=== PATIENT | male | born 1985 | race Caucasian/White ===

== ENCOUNTER 2017-03-04 02:42 | Emergency (ER) | payer MEDICARE ==
[2017-03-04 05:40] LABS: HEMOGLOBIN 12.3 gm/dl (14.0-17.5); RED BLOOD COUNT 4.12 M/UL (4.20-5.50); WHITE BLOOD COUNT 9.2 K/UL (4.5-11.0)
[2017-03-04 06:04] LABS: BUN/CREATININE RATIO 28 (0-10)
== END 2017-03-04 07:50 ==
LOC: ER1 02:42
PROVIDERS: Emergency Medicine
DX: S51.012A Laceration without foreign body of left elbow, initial encounter (principal); N39.0 Urinary tract infection, site not specified; F17.210 Nicotine dependence, cigarettes, uncomplicated; Z23 Encounter for immunization; X99.8XXA Assault by other sharp object, initial encounter; Y92.009 Unspecified place in unspecified non-institutional (private) residence as the place of occurrence of the external cause
CPT/HCPCS: 12001; 36415; 70450; 73080; 80053; 80307; 81001; 85025; 87086; 90471; 90715; 96361; 96374; 99284; J2310; J2405

== ENCOUNTER 2020-11-18 14:14 | Emergency (ER) | payer OTHER ==
[~2020-11-18 14:14] MED LIST: BACTRIM DS TAB1 EACH PO; BUPRENORPHIN-N1 EACH SL; FLOVENT 110.088 GM/I INH; IBU800 MG PO; KEFLEX CAP 500500 MG PO; KEFLEX500 MG PO; LODINE CAP 300300 MG PO; MORGIDOX100 MG PO; NASONEX17 GM; ZITHROMAX TRI-500 MG PO
[2020-11-18] MEDS ORDERED: ELIMITE 5% CREA60 GM TOP (15:42)
== END 2020-11-18 15:45 | disposition home or self-care (01) ==
LOC: ER1 14:14
DX: B86 Scabies (principal); F17.200 Nicotine dependence, unspecified, uncomplicated
CPT/HCPCS: 99282

== ENCOUNTER 2020-12-15 19:28 | Emergency (ER) | payer OTHER ==
[~2020-12-15 19:28] MED LIST changes: +ELIMITE 5% CREA60 GM TOP
[2020-12-15] MEDS ORDERED: ELIMITE 5% CREA60 GM TOP (20:22)
[2020-12-15] MEDS ORDERED: DOXYCYCLINE MO100 MG PO (20:22)
[2020-12-15] MEDS ORDERED: VISTARIL25 MG PO (20:22)
== END 2020-12-15 20:31 | disposition home or self-care (01) ==
LOC: ER1 19:28
DX: L29.9 Pruritus, unspecified (principal); L73.9 Follicular disorder, unspecified; B86 Scabies; F17.210 Nicotine dependence, cigarettes, uncomplicated
CPT/HCPCS: 99282

== ENCOUNTER 2020-12-19 13:48 | Emergency (ER) | payer OTHER ==
[~2020-12-19 13:48] MED LIST changes: +DOXYCYCLINE MO100 MG PO; +VISTARIL25 MG PO
== END 2020-12-19 14:45 | disposition home or self-care (01) ==
LOC: ER1 13:48
DX: F22 Delusional disorders (principal)
CPT/HCPCS: 99282

== ENCOUNTER 2021-02-25 12:28 | Emergency (ER) | payer OTHER ==
[2021-03-01 08:10] LABS: CHLAMYDIA TRACHOMATIS, NAA Negative (Negative); NEISSERIA GONORRHOEAE, NAA Positive (Negative)
== END 2021-02-25 14:05 | disposition home or self-care (01) ==
LOC: ER1 12:28
PROVIDERS: Physician Assistant
DX: R36.9 Urethral discharge, unspecified (principal); R30.0 Dysuria; Z20.2 Contact with and (suspected) exposure to infections with a predominantly sexual mode of transmission; F17.210 Nicotine dependence, cigarettes, uncomplicated
CPT/HCPCS: 81001; 87086; 96372; 99283; J0696

== ENCOUNTER 2021-03-21 14:27 | Emergency (ER) | payer OTHER ==
[2021-03-21] MEDS ORDERED: CLEOCIN HCL300 MG PO (14:50)
[2021-03-21] MEDS ORDERED: DOXYCYCLINE HY100 MG PO (14:58)
== END 2021-03-21 15:00 | disposition home or self-care (01) ==
LOC: ER1 14:27
DX: R21 Rash and other nonspecific skin eruption (principal); F17.200 Nicotine dependence, unspecified, uncomplicated
CPT/HCPCS: 99282

== ENCOUNTER 2021-11-30 15:28 | Emergency (ER) | payer MEDICAID ==
[~2021-11-30 15:28] MED LIST changes: +CLEOCIN HCL300 MG PO; +DOXYCYCLINE HY100 MG PO
[2021-11-30] MEDS ORDERED: PERCOCET 5-3251 EACH PO (17:50)
== END 2021-11-30 18:20 | disposition home or self-care (01) ==
LOC: ER1 15:28
DX: S43.014A Anterior dislocation of right humerus, initial encounter (principal); W19.XXXA Unspecified fall, initial encounter; Y92.009 Unspecified place in unspecified non-institutional (private) residence as the place of occurrence of the external cause
CPT/HCPCS: 23650; 73030; 99152; 99283; J1170; J2250; J2405; J2704

== ENCOUNTER 2021-12-03 12:03 | Emergency (ER) | payer OTHER ==
[~2021-12-03 12:03] MED LIST changes: +PERCOCET 5-3251 EACH PO
[2021-12-03] MEDS ORDERED: NAPROXEN500 MG PO (15:56)
== END 2021-12-03 16:17 | disposition home or self-care (01) ==
LOC: ER1 12:03
DX: S43.034A Inferior dislocation of right humerus, initial encounter (principal); S43.014A Anterior dislocation of right humerus, initial encounter; F17.210 Nicotine dependence, cigarettes, uncomplicated; X58.XXXA Exposure to other specified factors, initial encounter
CPT/HCPCS: 23650; 73030; 96374; 96375; 99283; J1170; J2270; J2405; J2704

== ENCOUNTER 2022-02-04 13:42 | Emergency (ER) | payer OTHER ==
[~2022-02-04 13:42] MED LIST changes: +NAPROXEN500 MG PO
[2022-02-04] MEDS ORDERED: BACTRIM DS TAB1 EACH PO (13:58)
[2022-02-04] MEDS ORDERED: CEPHALEXIN500 MG PO (13:58)
== END 2022-02-04 14:08 | disposition home or self-care (01) ==
LOC: ER1 13:42
DX: H00.031 Abscess of right upper eyelid (principal); L08.9 Local infection of the skin and subcutaneous tissue, unspecified; F17.210 Nicotine dependence, cigarettes, uncomplicated
CPT/HCPCS: 99283

== ENCOUNTER 2022-03-08 16:39 | Emergency (ER) | payer OTHER ==
[~2022-03-08 16:39] MED LIST changes: +CEPHALEXIN500 MG PO
[2022-03-08] MEDS ORDERED: VISTARIL50 MG PO (22:04)
== END 2022-03-08 22:10 | disposition home or self-care (01) ==
LOC: ER1 16:39
DX: R21 Rash and other nonspecific skin eruption (principal); F17.210 Nicotine dependence, cigarettes, uncomplicated
CPT/HCPCS: 99282

== ENCOUNTER 2022-06-25 10:36 | Emergency (ER) | payer OTHER ==
[~2022-06-25 10:36] MED LIST changes: +VISTARIL50 MG PO
[2022-06-25] MEDS ORDERED: IBUPROFEN800 MG PO (11:08)
[2022-06-25] MEDS ORDERED: PAROEX473 ML MM (11:08)
[2022-06-25] MEDS ORDERED: PENVEE K 500 M500 MG PO (11:08)
[2022-06-25] MEDS ORDERED: HYDROCODON-ACE1 EAC4 PO (11:08)
== END 2022-06-25 11:20 | disposition home or self-care (01) ==
LOC: ER1 10:36
DX: K04.7 Periapical abscess without sinus (principal); K02.9 Dental caries, unspecified; F17.210 Nicotine dependence, cigarettes, uncomplicated
CPT/HCPCS: 99282